=== PATIENT | female | born 1935 | race Caucasian/White ===

== ENCOUNTER 2019-10-07 16:58 | Emergency (ER) | payer MEDICARE, BC ==
[2019-10-07] MEDS ORDERED: XYLOCAINE 1% HCL 20 ML MDV IJ ONE (16:59)
--- NOTE | 2019-10-07 17:00 | ERPHSYRPT ---
- History of Present Illness Time Seen by Provider: 10/07/19 17:00 Source: patient, family Exam Limitations: no limitations Physician History: This is an right-handed 83-year-old white female who was holding her dog when another dog came up and confronted the patient and her dog she was holding. The patient's dog that she was holding accidentally bit her in the right wrist dorsal aspect. The patient used new skin to cover the 4 mm bite site. Within the 24-hour. She had redness present. She denies fever. Patient's tetanus is not up-to-date. Patient's dogs vaccine status is up-to-date. Timing/Duration: yesterday Quality: painful Severity: mild Location: extremities (Right wrist dorsal aspect) Possible Causes: other (Dog bite) Associated Symptoms: denies symptoms Allergies/Adverse Reactions: No Known Drug Allergies Allergy (Unverified 10/07/19 17:22) Home Medications: Amlodipine Besylate 2.5 mg PO DAILY 10/07/19 [History] Losartan/Hydrochlorothiazide [Losartan-Hctz 100-12.5 mg Tab] 100 mg PO DAILY 10/07/19 [History] Travel Risk - International Travel Have you traveled outside of the country in past 3 weeks: No - Coronavirus Screening Are you exhibiting any of the following symptoms?: No Close contact with a COVID-19 positive Pt in past 14-21 Days: No - Review of Systems Constitutional: No Symptoms Eyes: No Symptoms Ears, Nose, & Throat: No Symptoms Respiratory: No Symptoms Cardiac: No Symptoms Abdominal/Gastrointestinal: No Symptoms Genitourinary Symptoms: No Symptoms Musculoskeletal: No Symptoms Skin: Cellulitis (Dorsal aspect right wrist) Neurological: No Symptoms Psychological: No Symptoms Endocrine: No Symptoms Hematologic/Lymphatic: No Symptoms Immunological/Allergic: No Symptoms All Other Systems: Reviewed and Negative - Past Medical History Pertinent Past Medical History: No Neurological History: No Pertinent History ENT History: No Pertinent History Cardiac History: No Pertinent History Respiratory History: No Pertinent History Endocrine Medical History: No Pertinent History Musculoskeletal History: No Pertinent History GI Medical History: No Pertinent History History: No Pertinent History Psycho-Social History: No Pertinent History Female Reproductive Disorders: No Pertinent History - Past Surgical History Neuro Surgical History: No Pertinent History Cardiac: No Pertinent History Respiratory: No Pertinent History Gastrointestinal: No Pertinent History Genitourinary: No Pertinent History Musculoskeletal: No Pertinent History Female Surgical History: No Pertinent History - Nursing Vital Signs Nursing Vital Signs: Initial Vital Signs Temperature 98.3 F 10/07/19 17:05 Pulse Rate 105 H 10/07/19 17:05 Respiratory Rate 18 10/07/19 17:05 Blood Pressure 192/100 10/07/19 17:05 O2 Sat by Pulse Oximetry 97 10/07/19 17:05 Pain Scale Pain Intensity 3 - Physical Exam General Appearance: no apparent distress, alert, anxiety Eye Exam: PERRL/EOMI, eyes nml inspection Ears, Nose, Throat Exam: normal ENT inspection, moist mucous membranes Neck Exam: normal inspection, non-tender, supple, full range of motion Respiratory Exam: No chest tenderness Cardiovascular Exam: regular rate/rhythm, normal heart sounds, normal peripheral pulses Gastrointestinal/Abdomen Exam: No tenderness Pelvic Exam: No not done Rectal Exam: No not done Back Exam: normal inspection, normal range of motion, No CVA tenderness, No vertebral tenderness Extremity Exam: normal range of motion, pelvis stable, inflammation (Cellulitis right wrist. No abscess. No proximal streaking. Patient is neurovascularly intact), tenderness Neurologic Exam: alert, oriented x 3, cooperative, inbound sales advisor II-XII nml as tested, normal mood/affect, nml cerebellar function, nml station & gait, sensation nml Skin Exam: other (Cellulitis see above) Lymphatic Exam: No adenopathy SpO2 Interpretation: normal O2 Delivery: Room Air - Course Nursing assessment & vital signs reviewed: Yes Ordered Tests: Medication Summary Discontinued Medications Generic Name Dose Route Start Last Admin Trade Name Freq PRN Reason Stop Dose Admin Ceftriaxone Sodium 1,000 mg 10/07/19 17:22 Rocephin 1000 Mg Inj IM 10/07/19 17:23 STAT ONE Diphtheria/Tetanus/Acell Pertussis 0.5 ml 10/07/19 17:22 Adacel Vial IM 10/07/19 17:23 .ONCE ONE - Progress Progress: unchanged, pain not gone completely, re-examined Counseled pt/family regarding: diagnosis, need for follow-up - Departure Departure Disposition: Home Clinical Impression: Cellulitis Condition: Stable Critical Care Time: No Referrals: Provider,Unknown [Primary Care Provider] - Additional Instructions: Keep area clean daily with soap and water. Do not apply lotions ointments or creams. Return to the emergency department if the area of redness is increasing. Take medication as prescribed. Take your antibiotics with food. Prescriptions: Amoxicillin/Potassium Clav [Augmentin 500-125 Tablet] 1 each PO BID #14 tablet
[2019-10-07] MEDS ORDERED: Adacel Vial IM ONE ×2 (17:22→17:39)
[2019-10-07] MEDS ORDERED: Rocephin 1000 MG INJ IM ONE (17:22)
[2019-10-07] MEDS ORDERED: Rocephin 1000 MG INJ ONE (17:38)
[2019-10-07 18:08] VITALS: BP 153/74; PULSE 99; O2SAT 99
== END 2019-10-07 18:20 | disposition home or self-care (01) ==
LOC: ED 16:58
DX: L03.113 Cellulitis of right upper limb (principal); S61.551A Open bite of right wrist, initial encounter
CPT/HCPCS: 90471; 90715; 96372; 99284; J0696